=== PATIENT | male | born 1985 ===

== ENCOUNTER 2021-01-05 10:41 | Emergency (ER) | payer BC ==
--- NOTE | 2021-01-05 11:31 | EDM.PDOC ---
ED HPI GENERAL MEDICAL PROBLEM - General Chief Complaint: Respiratory Problem Stated Complaint: R LUNG IS PAINFUL AND COUGH Time Seen by Provider: 01/05/21 10:58 - History of Present Illness INITIAL COMMENTS - FREE TEXT/NARRATIVE: History of present illness: [] The patient has pain in his right anterior chest at the lower part of the rib cage in the mid clavicular line. It is sharp and hurts when he breathes. It also hurts in certain movements. It started at 8 PM last night before he went to bed. Persist now. It is worse when he coughs. He has a little cough but not significantly interfering with his normal activity conversation etc. He does not have a fever or chills. The patient is a former smoker who vapes now. Review of systems: As per history of present illness and below otherwise all systems reviewed and negative. Past medical history: As per history of present illness and as reviewed below otherwise noncontributory. Surgical history: As per history of present illness and as reviewed below otherwise noncontributory. Social history: No reported history of drug or alcohol abuse. Family history: As per history of present illness and as reviewed below otherwise noncontributory. Physical exam: Constitutional - well developed, well-nourished and in no acute distress HEENT - normocephalic, no evidence of trauma - external nose and mouth normal - no mass in neck and no JVD - mucosae moist EYES - full EOM, PERRL, no icterus - no evidence of inflammation, injection, or drainage Respiratory - no respiratory distress, equal bilateral expansion, lungs clear on the left with an inspiratory whistling sound throughout the posterior right lung field. Cardiovascular - Regular Rhythm with S1 and S2 appreciated and no murmur, gallop or rub. GI - abdomen soft without distension or organomegaly - normal bowel sounds - no guard or rebound Musculoskeletal no gross deformity of long bones or joints - no tenderness, swelling or edema Neurologic - Alert and oriented times four - CN II-XII grossly intact - motor sensory and coordination symmetrically normal Psychiatric - appropriate mood and affect with normal thought content Hematologic - No petechiae or purpura - mucosa appropriate color and sclera not pale - normal nail bed color and refill Integument - no rash or evidence of trauma - normal turgor Diagnostics: [] Therapeutics: [] Impression: [] Plan: [] Definitive disposition and diagnosis as appropriate pending reevaluation and review of above. Right Lung Pain Score (Numeric/FACES): 7 - Related Data Allergies Allergy/AdvReac Type Severity Reaction Status Date / Time No Known Allergies Allergy Verified 01/05/21 11:26 Home Meds: Home Meds Amphetamine Sulfate 10 mg PO DAILY 01/05/21 [History] methylPREDNISolone [Medrol Dose Pack] 4 mg PO DAILY #21 tab 01/05/21 [Rx] ED ROS GENERAL - Review of Systems Review Of Systems: Comprehensive ROS is negative, except as noted in HPI. ED EXAM, GENERAL - Physical Exam Exam: See Below Free Text/Narrative:: My physical labs in the HPI #1 Interpretation EKG Date: 01/05/21 EKG Interpretation Comments: EKG done at 11:33 AM shows sinus rhythm with a heart rate 81 OR 121 QT duration 429 axis 44. The T waves flattened in aVF and inverted in 3. There is possible atrial enlargement on the P wave. There is no prior for comparison. Impression no compelling evidence of any ischemia or injury. Course - Vital Signs Last Recorded V/S: Last Vital Signs Temp 37.0 C 01/05/21 11:27 Pulse 90 01/05/21 11:27 Resp 16 01/05/21 11:27 BP 145/84 H 01/05/21 11:27 Pulse Ox 95 01/05/21 11:27 - Orders/Labs/Meds Orders: Active Orders 24 hr Category Date Time Status EKG Documentation Completion [RC] STAT Care 01/05/21 11:33 Active Chest 2V [CR] Stat Exams 01/05/21 11:29 Taken Meds: Medications Discontinued Medications Generic Name Dose Route Start Last Admin Trade Name Wilmer PRN Reason Stop Dose Admin Ketorolac Tromethamine 15 mg 01/05/21 12:00 Ketorolac 30 Mg/Ml Sdv IVPUSH 01/05/21 12:01 ONETIME ONE Departure - Departure Time of Disposition: 12:15 Disposition: Home, Self-Care 01 Condition: Good Clinical Impression: Pleurisy - Discharge Information Prescriptions: methylPREDNISolone [Medrol Dose Pack] 4 mg PO DAILY #21 tab Instructions: Pleurisy, [id number] Referrals: Debby Tovar DO [Primary Care Provider] - Forms: ED Department Discharge Additional Instructions: [facility] [address] [place], [place] [address], [place] [address] [facility] [address] [place] [address] The following information is given to patients seen in the emergency department who are being discharged to home. This information is to outline your options for follow-up care. We provide all patients seen in our emergency department with a follow-up referral. The need for follow-up, as well as the timing and circumstances, are variable depending upon the specifics of your emergency department visit. If you don't have a primary care physician on staff, we will provide you with a referral. We always advise you to contact your personal physician following an emergency department visit to inform them of the circumstance of the visit and for follow-up with them and/or the need for any referrals to a consulting specialist. The emergency department will also refer you to a specialist when appropriate. This referral assures that you have the opportunity for follow-up care with a specialist. All of these measure are taken in an effort to provide you with optimal care, which includes your follow-up. Under all circumstances we always encourage you to contact your private physician who remains a resource for coordinating your care. When calling for follow-up care, please make the office aware that this follow-up is from your recent emergency room visit. If for any reason you are refused follow-up, please contact the [facility] Emergency Department at and asked to speak to the emergency department charge nurse. Sepsis Event Note (ED) - Focused Exam Vital Signs: Vital Signs Temp Pulse Resp BP Pulse Ox 01/05/21 11:27 37.0 C 90 16 145/84 H 95 - My Orders Last 24 Hours: My Active Orders 01/05/21 11:29 Chest 2V [CR] Stat 01/05/21 11:33 EKG Documentation Completion [RC] STAT - Assessment/Plan Last 24 Hours: My Active Orders 01/05/21 11:29 Chest 2V [CR] Stat 01/05/21 11:33 EKG Documentation Completion [RC] STAT
[2021-01-05] MEDS ORDERED: Ketorolac 30 MG/ML SDV IVPUSH ONE (12:00)
--- NOTE | 2021-01-05 12:26 | CR ---
INDICATION: Pleuritic chest pain. TECHNIQUE: Chest 2 views. COMPARISON: None FINDINGS: Cardiovascular and mediastinum: Heart size and vasculature are normal in caliber and appearance. Mediastinum is within normal limits. Lungs and pleural spaces: Lungs are clear. No sign of infiltrate or mass. No sign of pleural effusion. No pneumothorax. Bones and soft tissues: No significant findings. IMPRESSION: Lungs and pleural spaces are clear. Dictated by Demarcus Flor MD @ 01/05/2021 12:24:[address] Demarcus Flor @ Jan 05 2021 12:24PM
== END 2021-01-05 12:27 | disposition home or self-care (01) ==
LOC: MW.ED 10:41
DX: R09.1 Pleurisy (principal)
CPT/HCPCS: 71046; 93005; 96374; 99285; J1885; 93010; 99284